=== PATIENT | female | born 1995 | race Caucasian/White ===

== ENCOUNTER → 2016-07-14 | Outpatient (CLI) | payer SELFPAY ==
[~2016-07-14] MED LIST: NAPR220T PO
== END | disposition home or self-care (01) ==
LOC: C.LAB 15:32
PROVIDERS: ATTEND General Practice
DX: A69.20 Lyme disease, unspecified (principal)

== ENCOUNTER → 2016-07-14 | Outpatient (CLI) | payer BC ==
[2016-07-14 17:58] LABS: BASO % 0.5 %; BASO ABS # 0.05 K/uL (0-0.2); COMPLETE YES; EOS % 7.9 %; HEMATOCRIT 38.7 % (37-47); IG% 0.2 %; LYMPH ABS # 2.84 K/uL (1.2-3.4); MEAN CELL VOLUME 87.2 fL (80-100); MEAN CORPUSCULAR HEMOGLOBIN 29.7 pg (25-34); MEAN CORPUSCULAR HGB CONC 34.1 g/dl (32-36); MEAN PLATELET VOLUME 10.8 fL (7.4-10.4); MONO % 8.3 %; NEUT % 57.1 %; PLATELET COUNT 236 K/uL (130-400); RED BLOOD COUNT 4.44 M/uL (4.2-5.4); WHITE BLOOD COUNT 10.91 K/uL (4.8-10.8)
[2016-07-14 18:32] LABS: ALT/SGPT 20 U/L (12-78); AST/SGOT 30 U/L (15-37); BLOOD UREA NITROGEN 12 mg/dl (7-18); BUN/CREATININE RATIO 15.9 (10-20); CALCIUM 8.6 mg/dl (8.5-10.1); CARBON DIOXIDE 23 mmol/L (21-32); CHLORIDE 106 mmol/L (98-107); CREATININE 0.77 mg/dl (0.60-1.20); GLUCOSE 74 mg/dl (70-99); SODIUM 140 mmol/L (136-145)
[2016-07-14 18:34] LABS: ALB/GLOB RATIO 1.1 (0.9-2); ALKALINE PHOSPHATASE 57 U/L (45-117)
[2016-07-14 18:40] LABS: INSULIN FASTING 6.4 mU/L (3-25)
[2016-07-15 06:09] LABS: ESTIMATED AVERAGE GLUCOSE 111 mg/dl; HA1C FLAG Normal (Normal)
[2016-07-19 19:35] LABS: REFERENCE QUEST TEST REPORT
[2016-07-20 17:35] LABS: ANAPLASMA PHAGOCYTOPHIL IGG <1:64 (<1:64); ANAPLASMA PHAGOCYTOPHIL IGM <1:20 (<1:20); CYTOMEGALOVIRUS IGG AB <0.91; EBV EARLY ANTIGEN AB <0.91 INDEX; EHRLICHIA CHAFF IGG AB <1:64 (<1:64); EHRLICHIA CHAFF IGM AB <1:20 (<1:20); RMSF IgM AB Not Detected (Not Detected)
== END | disposition home or self-care (01) ==
LOC: C.LAB 15:28
PROVIDERS: ATTEND General Practice
DX: A69.20 Lyme disease, unspecified (principal); E11.00 Type 2 diabetes mellitus with hyperosmolarity without nonketotic hyperglycemic-hyperosmolar coma (NKHHC); E55.9 Vitamin D deficiency, unspecified; B25.9 Cytomegaloviral disease, unspecified; B27.90 Infectious mononucleosis, unspecified without complication; A44.0 Systemic bartonellosis; B60.0 Babesiosis